=== PATIENT | female | born 1985 | race Caucasian/White ===

== ENCOUNTER 2017-02-03 15:36 | Emergency (ER) | payer MEDICAID ==
--- NOTE | 2017-02-15 07:48 | ER ---
ADMIT: 02/03/2017 RM/LOC: ER [facility] MR#: [id number] [facility] [address] [place], [place] [id number] ROSANNA ALVAREZ [address] [place] [address] Emergency Room Report SEX: F AGE: 31 : 1985 DATE: 02/03/2017 ADDENDUM: This patient comes to the ER because she is unable to sleep fully through the night for the last 2 weeks. She is currently on lithium. She has depression, and she feels like her medications just are not helping her. They recently stopped her trazodone, and she feels like she needs help with her medications. Her CBC and BMP were normal. I spoke with [facility], and they do have a spot open. They will do a psych evaluation and see if she qualifies as an inpatient. Otherwise, they will try to set an appointment for her to follow up with one of their providers. Please see my T- sheet. PRISCILA Cano / Ananth Ruiz MD / enrrique JOB #: [id number] CC: Ananth Ruiz MD, Attending Physician UNKNOWN, Family Physician
== END 2017-02-03 17:40 | disposition home or self-care (01) ==
LOC: ER 15:36
DX: G47.00 Insomnia, unspecified (principal); F41.9 Anxiety disorder, unspecified; F32.9 Major depressive disorder, single episode, unspecified; Z88.1 Allergy status to other antibiotic agents